=== PATIENT | female | born 1940 | race African-American/Black ===

== ENCOUNTER 2021-02-07 07:00 | Emergency (ER) | payer OTHER ==
[~2021-02-07] VITALS: Ht 165.1 cm; Wt 90.7 kg
[2021-02-07] MEDS ORDERED: ASA81BEC PO (07:17)
[2021-02-07 07:53] LABS: HEMATOCRIT 35.4 % (37.0-47.0); HEMOGLOBIN 11.1 gm/dL (12.0-15.0); MCH 20.9 pg (26.0-34.0); MCHC 31.5 g/dL (28.0-37.0); MCV 66.3 fL (80.0-100.0); MPV 8.2 fl. (7.2-11.1); RBC 5.34 mil/uL (4.20-5.00); RDW-CV 15.7 % (10.5-14.5); WBC 3.6 thou/uL (4.0-11.0)
[2021-02-07 07:58] LABS: CALCIUM 8.7 mg/dL (8.5-10.1); CREATININE 1.1 mg/dL (0.6-1.3); POTASSIUM 3.5 mmol/L (3.5-5.1)
[2021-02-07 08:03] LABS: ALBUMIN 3.5 g/dL (3.4-5.0); TOTAL BILIRUBIN 0.7 mg/dL (<0.1-1.0); TOTAL PROTEIN 7.8 g/dL (6.4-8.2)
[2021-02-07 09:34] VITALS: BP 152/79
== END 2021-02-07 09:35 | disposition home or self-care (01) ==
LOC: M.ERS 07:00
PROVIDERS: Emergency Medicine Emergency Medical Services
DX: M79.89 Other specified soft tissue disorders (principal); M79.662 Pain in left lower leg; Z79.82 Long term (current) use of aspirin